=== PATIENT | male | born 1980 | race Caucasian/White ===

== ENCOUNTER → 2019-06-03 | Outpatient (REF) | payer OTHER ==
[2019-06-03 12:33] LABS: SEMEN APPEARANCE OPAQUE (OPAQUE); SEMEN VISCOSITY LIQUID (LIQUID); SEMEN VOLUME 2.4 ml (2.0-5.0); SPERM CONCENTRATION 74.5 M/ml (>=15.0); WBC CONCENTRATION <=1 M/ml (<=1 M/ml)
== END ==
LOC: M LAB REF 12:12
PROVIDERS: ATTEND Obstetrics & Gynecology Reproductive Endocrinology
DX: N46.9 Male infertility, unspecified (principal)

== ENCOUNTER → 2020-05-23 | Outpatient (CLI) | payer SELFPAY | LOC: M LABSMTC 14:34 | PROVIDERS: ATTEND Pediatrics | DX: Z11.59 Encounter for screening for other viral diseases (principal) ==

== ENCOUNTER → 2023-10-15 | Outpatient (REF) | payer OTHER | LOC: M LABSMT 09:07 | PROVIDERS: ATTEND Urology | DX: Z30.2 Encounter for sterilization (principal) ==

== ENCOUNTER → 2024-04-25 | Outpatient (REF) | payer OTHER ==
[~2024-04-25] MED LIST: AMOX875T2 PO; BACT800T5 PO; CEPH500C; OFLO5DRO; VALA1TAB5 PO; ZIRG0.152 OP
== END ==
LOC: M LAB REF 17:29
PROVIDERS: ATTEND Registered Nurse
DX: H10.9 Unspecified conjunctivitis (principal)

== ENCOUNTER 2024-04-27 09:42 | Emergency (ER) | payer OTHER ==
[~2024-04-27] VITALS: Ht 175.3 cm; Wt 86.2 kg
[2024-04-27 09:44] VITALS: TEMP 97; O2SAT 99
[2024-04-27] MEDS ORDERED: CEPH500C (12:01)
[2024-04-27] MEDS ORDERED: OFLO5DRO (12:01)
[2024-04-27] MEDS ORDERED: AMPICILLIN SOD/SULBACTAM SOD 3 GM in DEXTROSE 5% (D5W) ADV/MINI-BAG 50 ML IV ONE (13:00)
[2024-04-27] MEDS: dexAMETHasone 20MG/5ML VIAL IV ONE (13:16)
[2024-04-27 13:37] LABS: BASO % 0.6 % (0.0-1.0); EOS # 0.1 10^3/uL (0.0-0.5); EOS % 1.1 % (0.0-3.0); HEMATOCRIT 48.4 % (42.0-52.0); LYMPH # 1.4 10^3/uL (1.5-5.0); LYMPH % 26.3 % (24.0-44.0); MEAN CORPUSCULAR HEMOGLOBIN 28.3 pg (27.0-33.0); MEAN CORPUSCULAR HGB CONC 33.1 g/dl (32.0-36.5); MEAN CORPUSCULAR VOLUME 85.7 fl (80.0-96.0); MONO # 0.5 10^3/uL (0.0-0.8); NEUTROPHILS # 3.4 10^3/uL (1.5-8.5); NEUTROPHILS % 62.8 % (36.0-66.0); PLATELET COUNT, AUTOMATED 249 10^3/uL (150-450); RED BLOOD COUNT 5.65 10^6/uL (4.30-6.10); WHITE BLOOD COUNT 5.4 10^3/uL (4.0-10.0)
[2024-04-27 13:42] LABS: ERYTHROCYTE SEDIMENTATION RATE 27 mm/hr (0-15)
[2024-04-27] MEDS: AMPICILLIN SOD/SULBACTAM SOD 3 GM in SODIUM CHLORIDE 0.9% 100ML ADD 100 ML IV ONE (13:43)
[2024-04-27] MEDS ORDERED: ISOVUE-370 76% 100ML VIAL As Ordered ONE (13:46)
[2024-04-27 13:52] LABS: ALBUMIN 4.3 G/DL (3.2-5.2); BILIRUBIN,DIRECT 0.4 MG/DL (<0.4); BILIRUBIN,TOTAL 1.8 MG/DL (0.3-1.2)
[2024-04-27] MEDS: FLUORESCEIN OPHTH 1MG STRIP OS ONE (13:54)
[2024-04-27] MEDS ORDERED: VALA1TAB5 PO (15:06)
[2024-04-27] MEDS ORDERED: BACT800T5 PO (15:06)
[2024-04-27] MEDS ORDERED: ZIRG0.152 OP (15:06)
[2024-04-27] MEDS ORDERED: AMOX875T2 PO (15:06)
[2024-04-27 15:18] VITALS: BP 144/82
== END 2024-04-27 15:22 | disposition home or self-care (01) ==
LOC: M ED 09:42
DX: L03.213 Periorbital cellulitis (principal); Z79.2 Long term (current) use of antibiotics; Z79.899 Other long term (current) drug therapy
CPT/HCPCS: 70481; 80047; 80076; 83605; 85025; 85652; 86140; 87040; 96365; 96366; 96375; 99284; J0295; J1100; Q9967